=== PATIENT | male | born 1990 | race Two or more races ===

== ENCOUNTER 2018-04-09 12:10 | Inpatient (IN) | payer BC ==
[~2018-04-09] VITALS: Ht 172.7 cm; Wt 63.5 kg
--- NOTE | 2018-04-09 12:10 | NUR ---
NAUSEA AND VOMITING, PER PT AFTER EATING BREAKFAST THIS AM. NAD NOTED, VSS, RESP EVEN AND UNLABORED, PT WAS PUT MONITOR, WAITING FOR MD FITZPATRICK.
[2018-04-09] MEDS ORDERED: ONDANSETRON HCL/PF 4 MG/2 ML VIAL ONE (12:59)
[2018-04-09] MEDS ORDERED: IV NS 0.9% 1,000 ML BAG IV ONE (13:00)
[2018-04-09] MEDS ORDERED: LORAZEPAM INJ 2 MG/ML VIAL IV ONE ×3 (13:00→21:00)
[2018-04-09] MEDS ORDERED: ONDANSETRON HCL/PF 4 MG/2 ML VIAL IVP ONE (13:00)
[2018-04-09] MEDS ORDERED: LORAZEPAM INJ 2 MG/ML VIAL ONE ×2 (13:00→14:04)
[2018-04-09 13:20] LABS: CALCIUM, SERUM 9.9 mg/dL (8.5-10.1); CREATININE 1.2 mg/dL (0.6-1.3)
[2018-04-09 13:22] LABS: POTASSIUM 2.8 mmol/L (3.5-5.1)
[2018-04-09] MEDS ORDERED: Magnesium 1 GM/2 ML VIAL IV ONE (13:30)
[2018-04-09] MEDS ORDERED: POTASSIUM CHLORIDE 20 MEQ TAB.PRT.SR PO ONE ×2 (13:30→13:43)
[2018-04-09 13:31] LABS: ALBUMIN 4.7 g/dL (3.4-5.0); BILIRUBIN,DIRECT 0.2 mg/dL (0.0-0.2); TOTAL PROTEIN, SERUM 8.2 g/dL (6.4-8.2)
[2018-04-09] MEDS ORDERED: POTASSIUM CL. PREMIX PERIPHER. 200 ML ONE (13:43)
[2018-04-09] MEDS ORDERED: Magnesium 1GM/D5W 100ML PREMIX 100 ML IV ONE (13:43)
[2018-04-09] MEDS: POTASSIUM CL. PREMIX PERIPHER. 50 ML IV SCH ×4 (14:02→20:02)
[2018-04-09] MEDS ORDERED: MELO15TA13 PO (14:27)
[2018-04-09] MEDS ORDERED: FLUO20CA36 PO (14:27)
[2018-04-09 14:47] LABS: BASOPHILS % (AUTO) 0.2 % (0.0-2.0); EOSINOPHILS % (AUTO) 0.6 % (0.0-6.0); HEMATOCRIT 45 % (39-51); HEMOGLOBIN 15.5 g/dL (13.5-17.5); LYMPHOCYTES # (AUTO) 2.2 /CMM (0.8-4.8); LYMPHOCYTES % (AUTO) 14.4 % (20.0-44.0); MEAN CORPUSCULAR HEMOGLOBIN 31 PG (26.0-33.0); MEAN CORPUSCULAR HGB CONC 34 g/dl (31.0-36.0); MEAN CORPUSCULAR VOLUME 91 fL (80-96); MONOCYTES # (AUTO) 0.6 /CMM (0.1-1.30); MONOCYTES % (AUTO) 4.1 % (2.0-12.0); NEUTROPHILS # (AUTO) 12.1 /CMM (1.8-8.9); NEUTROPHILS % (AUTO) 80.7 % (43.0-81.0); PLATELET COUNT (AUTO) 309 /CMM (150-450); RED BLOOD CELL COUNT(AUTO) 4.99 MIL/uL (4.5-6.0); WHITE BLOOD COUNT (AUTO) 15.1 K/uL (4.3-11.0)
[2018-04-09] MEDS ORDERED: POTASSIUM CL. PREMIX PERIPHER. 50 ML ONE ×2 (14:48→16:11)
--- NOTE | 2018-04-09 15:08 | NUR ---
CALLED [employer] SUPPORT DIRECTOR WAS PAGED.
[2018-04-09 16:00] VITALS: BP 131/67
--- NOTE | 2018-04-09 16:29 | NUR ---
ENDORSED TO SERGEI BROWN TO HANG THE LAST BAG OF POTASSIUM TO COMPLETE TOTAL ORDER OF 200ML POTASSIUM IV.
[2018-04-09] MEDS ORDERED: ONDANSETRON HCL/PF 4 MG/2 ML VIAL IVP PRN (16:30)
[2018-04-09] MEDS ORDERED: ACETAMINOPHEN 325 MG TABLET PO PRN (16:30)
[2018-04-09] MEDS ORDERED: ZOLPIDEM TARTRATE 5 MG TABLET PO PRN (16:30)
[2018-04-09] MEDS ORDERED: HYDROCODONE/APAP 5/325MG 1 EACH TABLET PO PRN (16:30)
[2018-04-09] MEDS ORDERED: MAGNESIUM HYDROXIDE 30 ML UDC PO PRN (16:30)
[2018-04-09] MEDS ORDERED: Z GUARD REMEDY 2 OZ OINT TP PRN (16:30)
[2018-04-09] MEDS ORDERED: MAG HYDROX/AL HYDROX/SIMETH 30 ML UDC PO PRN (16:30)
--- NOTE | 2018-04-09 16:30 | NUR ---
RECEIVED REPORT FROM DOTTIE MAI IN THE ER. PATIENT IS TO BE ADMITTED TO TELEMETRY FLOOR.
--- NOTE | 2018-04-09 17:00 | NUR ---
STRIP MACHINE OPERATORINCENDIARIES SUPERVISOR NOTE RECEIVED PATIENT FROM ER VIA GURNEY. ALERT ORIENTED X4. IN NO APPARENT DISTRESS OR DISCOMFORT AT THIS TIME. RESPIRATIONS EVEN AND UNLABORED. ABLE TO COMMUNICATE NEEDS. PATIENT IS STABLE, VITAL SIGNS ARE STABLE, ON ROOM AIR TOLERATING WELL. DENIES PAIN AND SOB. PATIENT IS STILL SLIGHTLY NAUSEOUS. NO VOMITING AT THIS TIME. PATIENT WAS MADE COMFORTABLE IN BED. NURSING PHYSICAL ASSESSMENT COMPLETED. SKIN CHECKED NO SKIN IMPAIRMENTS NOTED. PATIENT'S MEDICAL HISTORY OBTAINED FROM HIMSELF. BELONGINGS CHECKED AND VERIFIED. VALUABLES WILL BE TAKEN AND PLACED IN THE SAFE AT KEYBOARD SPECIALIST'S OFFICE. PATIENT WITH TWO IVCS, RIGHT AC 20G SL AND LEFT AC 18G WITH POTASSIUM INFUSING AT THIS TIME. 3RD BAG IS RUNNING CURRENTLY. 4TH BAG PASSED ON TO ME BY THE ER NURSE TO ADMINISTER ACCORDINGLY. MD AWARE OF PATIENT'S ARRIVAL TO THE UNIT. ORIENTED PATIENT TO THE ROOM. SAFETY MEASURES WERE APPLIED. BED IN LOW LOCKED POSITION, SIDE RAILS UP X2, CALL LIGHT WITHIN EASY REACH. WILL CONTINUE TO MONITOR AND CARRY OUT ORDERS.
[2018-04-09] MEDS ORDERED: METOCLOPRAMIDE HCL 10 MG/2 ML VIAL IV PRN (18:30)
--- NOTE | 2018-04-09 19:10 | NUR ---
TELE/RN NOTES RECEIVED PT. LYING IN BED. PT. IS AWAKE, ALERT AND ORIENTED X4. BREATHING EVEN AND UNLABORED ON ROOM AIR. NO SOB, RESPIRATORY DISTRESS OR COMPLAINTS OF PAIN NOTED AT THIS TIME. NO COMPLAINTS OF NAUSEA OR VOMITING NOTED AT THIS TIME. PT. WITH EXTERNAL COLLECTION TEAM LEAD PRESENT AND INTACT CURRENT RHYTHM = SINUS RHYTHM HR 76. PT. WITH LEFT AC 18 GAUGE IV SALINE LOCK PRESENT, PATENT AND INTACT. PT. WITH RIGHT AC 20 GAUGE IV SALINE LOCK PRESENT, PATENT AND INTACT. WILL ADMINISTER TO PT. IV FLUIDS ORDERED. PT. WITH FAMILY MEMBERS PRESENT AT BEDSIDE. BED LOCKED AND IN LOWEST POSITION, SIDE RAILS UP X2, CALL LIGHT WITHIN REACH, WILL CONTINUE TO MONITOR.
[2018-04-09 19:15] VITALS: BP 131/67
--- NOTE | 2018-04-09 19:20 | NUR ---
SUPERVISOR HEAT TREATING CLOSING NOTE PATIENT IN BED. RESTING. ALERT ORIENTED X4. IN NO APPARENT DISTRESS OR DISCOMFORT AT THIS TIME. ON ROOM AIR TOLERATING WELL. RESPIRATIONS EVEN AND UNLABORED. REPORTS WEAKNESS AND NAUSEA. WANTS TO SLEEP AND REST. NO VOMITING PRESENT AT THIS TIME. PATIENT WAS PLACED ON TELE MONITORING WITH SINUS RHYTHM AND HR OF 62. PATIENT IS CONTINENT AND AMBULATORY. USES BATHROOM INDEPENDENTLY. RIGHT AC 20G, LEFT AC 18G IVCS. SL AT THIS TIME, PHARMACY VERIFIED ORDERED FLUIDS JUST RECENTLY WILL BE ADMINISTERED BY NIGHT NURSE. PATIENT IS NPO STATUS. ABLE TO COMMUNICATE NEEDS. SAFETY MEASURES IN PLACE, BED IN LOW LOCKED POSITION, SIDE RAILS UP X2, CALL LIGHT WITHIN EASY REACH. WILL ENDORSE TO PM NURSE FOR NILESH.
[2018-04-09] MEDS: IV NS 0.9% 1,000 ML IV PRN (19:58)
[2018-04-09 20:00] VITALS: BP 135/73
[2018-04-10 00:13] VITALS: BP 114/59
[2018-04-10 04:00] VITALS: BP 109/64
[2018-04-10] MEDS: IV NS 0.9% 1,000 ML IV PRN (04:24)
[2018-04-10 06:52] LABS: BASOPHILS % (AUTO) 0.2 % (0.0-2.0); EOSINOPHILS % (AUTO) 0.7 % (0.0-6.0); HEMATOCRIT 38 % (39-51); HEMOGLOBIN 12.8 g/dL (13.5-17.5); LYMPHOCYTES # (AUTO) 2.7 /CMM (0.8-4.8); LYMPHOCYTES % (AUTO) 26.3 % (20.0-44.0); MEAN CORPUSCULAR HEMOGLOBIN 32 PG (26.0-33.0); MEAN CORPUSCULAR HGB CONC 34 g/dl (31.0-36.0); MEAN CORPUSCULAR VOLUME 94 fL (80-96); MONOCYTES # (AUTO) 0.8 /CMM (0.1-1.30); MONOCYTES % (AUTO) 7.6 % (2.0-12.0); NEUTROPHILS # (AUTO) 6.7 /CMM (1.8-8.9); NEUTROPHILS % (AUTO) 65.2 % (43.0-81.0); PLATELET COUNT (AUTO) 213 /CMM (150-450); RED BLOOD CELL COUNT(AUTO) 4.03 MIL/uL (4.5-6.0); WHITE BLOOD COUNT (AUTO) 10.3 K/uL (4.3-11.0)
--- NOTE | 2018-04-10 06:55 | NUR ---
TELE/RN NOTES PT. IS LYING IN BED RESTING. BREATHING EVEN AND UNLABORED ON ROOM AIR. NO SOB, RESPIRATORY DISTRESS OR COMPLAINTS OF PAIN NOTED AT THIS TIME AND THROUGHOUT SHIFT. NO COMPLAINTS OF NAUSEA OR VOMITING NOTED AT THIS TIME. PT. WITH EXTERNAL LINUX SYSTEMS ENGINEER PRESENT AND INTACT CURRENT RHYTHM = SINUS UNA HR 56. PT. WITH LEFT AC 18 GAUGE IV SALINE LOCK PRESENT, PATENT AND INTACT ADMINISTERING TO PT. NS @ 125 ML/HR. PT. WITH RIGHT AC 20 GAUGE IV SALINE LOCK PRESENT, PATENT AND INTACT. ALL PT. NEEDS MET. BED LOCKED AND IN LOWEST POSITION, SIDE RAILS UP X2, CALL LIGHT WITHIN REACH, WILL ENDORSE TO DAYSHIFT NURSE FOR CONTINUITY OF CARE.
[2018-04-10 07:06] LABS: CALCIUM, SERUM 8.2 mg/dL (8.5-10.1); CREATININE 0.9 mg/dL (0.6-1.3); MAGNESIUM 1.9 mg/dL (1.8-2.4); PHOSPHORUS 3.7 mg/dL (2.5-4.9); POTASSIUM 3.9 mmol/L (3.5-5.1)
[2018-04-10 08:00] VITALS: BP 130/65
--- NOTE | 2018-04-10 08:00 | NUR ---
RN NOTES RECEIVED PATIENT IN THE BED A/O X4. PATIENT ON TELE [id number]. PATIENT REFUSED PAIN , NO ACUTE RESPIRATORY DISTRESS, NO COMPLAINING OF N/V AT THIS TIME. PER Dr. MIKE D/C TELE TO MED/SURGE. PATIENT AMBULATORY SELF CARE. ADMINISTERED SCHEDULED MEDICATION, V/S STABLE. INFUSING NS 125 ML/HR LEFT AC AREA INTACT. CALL LIGHT WITHIN TO REACH. SAFETY PRECAUTION MAINTAINED ALL THE TIME.
[2018-04-10] MEDS ORDERED: FLUOXETINE HCL 20 MG CAPSULE PO SCH (09:00)
[2018-04-10] MEDS ORDERED: MELOXICAM 7.5 MG TABLET PO SCH (09:00)
[2018-04-10] MEDS ORDERED: IV NS 0.9% 1,000 ML BAG IV SCH (09:00)
--- NOTE | 2018-04-10 09:00 | NUR ---
RN NOTES PATIENT CLEAR LIQUID DIET. PO ORDER PER Dr SAAVEDRA IF PATIENT TOLERATED DIET D/C HOME, ORDER TAKEN AND CARRIED OUT.
--- NOTE | 2018-04-10 10:00 | NUR ---
RN NOTES PATIENT STABLE NO COMPLAINING OF N/V, STABLE, NO C/O PAIN. CALL LIGHT WITHIN TO REACH. CONTINUED MONITORING.
--- NOTE | 2018-04-10 13:30 | NUR ---
DISCHARGE NOTES PATIENT DISCHARGE AT THIS TIME GOING HOME. PATIENT MEDICALLY STABLE, NO C/O PAIN, NO NAUSEA AND VOMITING, V/S STABLE. MED RECONCILIATION AND DISCHARGE ORDER REVIEWED AND EXPLAINED TO PATIENT. PATIENT VERBALIZED UNDERSTANDING. BELONGING RETURNED BACK TO THE PATIENT. PATIENT WILL FOLLOW PRIMARY MD. PATIENT ESCORTED TO THE LOBBY FOR SAFETY. PATIENT GYM ATTENDANT BY MOM NAME FABIO PHONE # [phone].
== END 2018-04-10 13:30 | disposition home or self-care (01) | DRG 395 ==
LOC: ER 12:11 → TELE 15:28 → MED 04-10 08:05
PROVIDERS: ADMIT Family Medicine; ATTEND Family Medicine
DX: K52.1 Toxic gastroenteritis and colitis (principal); E87.6 Hypokalemia; T40.7X5A Adverse effect of cannabis (derivatives), initial encounter; Y92.9 Unspecified place or not applicable; F12.90 Cannabis use, unspecified, uncomplicated; F32.9 Major depressive disorder, single episode, unspecified; F41.9 Anxiety disorder, unspecified; I10 Essential (primary) hypertension; Z83.3 Family history of diabetes mellitus; Z82.49 Family history of ischemic heart disease and other diseases of the circulatory system
CPT/HCPCS: 36415; 80048-TC; 80061-TC; 80076-TC; 83690-TC; 83735-TC; 84100-TC; 85025-TC; 87081-TC; A4606; G0480; J2060; J2405; J2765; J3475; J3480; J7030; J7040; Z7610